=== PATIENT | male | born 1945 | race Caucasian/White ===

== ENCOUNTER 2016-09-27 15:35 | Outpatient (CLI) | payer OTHER | END 2016-09-27 23:00 | disposition home or self-care (01) | LOC: LAB SRH 15:35 → XR SRH 15:35 → LAB SRH 23:00 | DX: Z00.00 Encounter for general adult medical examination without abnormal findings (principal) | CPT/HCPCS: 90074; 90100; 90970; 91046; 92690; 95059; 99777 ==